=== PATIENT | male | born 1975 | race Caucasian/White ===

== ENCOUNTER 2017-05-13 03:31 | Emergency (ER) | payer BC ==
[2017-05-13 03:51] VITALS: BP 120/73; PULSE 82; RESP 16; TEMP 98; O2SAT 100
[2017-05-13] MEDS ORDERED: Oxycodone/Acetaminophen 5/325 mg Tab PO STA (04:08)
[2017-05-13] MEDS ORDERED: Tmp-Smz 800 mg-160 mg DS Tab PO STA (04:09)
--- NOTE | 2017-05-13 04:21 | ED PDOC ---
Lower Extremity Pain/Injury Time Seen by Provider: 05/13/17 03:54 Chief Complaint (Nursing): Abnormal Skin Integrity Chief Complaint (Provider): lower extremity problem History Per: Patient History/Exam Limitations: no limitations Onset/Duration Of Symptoms: Days (x2) Current Symptoms Are (Timing): Still Present Additional Complaint(s): Dominick Mills is a 42 year old male who presents to the emergency department with a complaint of redness to the posterior and lateral portion of the ankle associated with swelling ongoing for 2 days. Denied any fever or chills. Patient stated that he believed symptoms are from insect bites. PMD: none provided Past Medical History Reviewed: Historical Data, Nursing Documentation, Vital Signs Vital Signs: Last Vital Signs Temp 98.0 F 05/13/17 03:49 Pulse 82 05/13/17 03:49 Resp 16 05/13/17 03:49 BP 120/73 05/13/17 03:49 Pulse Ox 100 05/13/17 03:49 - Medical History PMH: Denies: HIV, Chronic Kidney Disease - Family History Family History: States: Unknown Family Hx - Social History Current smoker - smoking cessation education provided: No Ex-Smoker (has not smoked in the last 12 months): No Alcohol: None Drugs: Denies - Home Medications Home Medications: Ambulatory Orders Medication Instructions Recorded DiphenhydrAMINE [Benadryl] 25 mg PO Q6 #10 cap 08/18/14 Methylprednisolone [Medrol Dose 4 mg PO DAILY #21 mg 08/18/14 Pack (21 tabs)] oxyCODONE/Acetaminophen [Percocet 1 ea PO Q6 PRN #20 tab 08/18/14 5/325 mg Tab] Acetaminophen 2 tab PO Q6 PRN #24 tab 04/25/15 Ibuprofen [Motrin] 1 tab PO Q8 PRN #21 tab 04/25/15 Penicillin V Potassium [Pen-Vee K] 500 mg PO Q6 #40 tab 04/25/15 Albuterol 0.083% [Albuterol 0.083% 2.5 mg IH TID PRN #100 neb 08/05/16 Inhal Sarah (2.5 mg/3 ml) UD] Albuterol HFA [Ventolin HFA 90 2 puff IH [id number] PRN #1 inhaler 08/05/16 mcg/actuation (8 g)] Azithromycin [Zithromax] 1 tab PO DAILY #6 tab 08/05/16 Mask, Face [Nebulizer Aerosol Mask 1 dev XX PRN PRN #1 dev 08/05/16 Adult] Nebulizer [Aeroeclipse II] 1 each MC TID PRN #1 each 08/05/16 Prednisone [Deltasone] 3 tab PO DAILY #12 tablet 08/05/16 Pseudoephedrine [Sudafed Tab] 1 tab PO Q6 PRN #24 tab 08/05/16 Albuterol HFA [Ventolin HFA 90 1 puff IH QPM PRN #1 inhaler 10/03/16 mcg/actuation (8 g)] Ibuprofen [Motrin Tab] 600 mg PO Q6 #30 tab 10/03/16 predniSONE [predniSONE Tab] 60 mg PO DAILY #9 tab 10/03/16 Ibuprofen [Motrin Tab] 600 mg PO Q6 #30 tab 05/13/17 Sulfamethoxazole/Trimethoprim 1 tab PO BID 7 Days tab 05/13/17 [Bactrim DS 800 mg-160 mg] - Allergies Allergies/Adverse Reactions: Allergies Allergy/AdvReac Type Severity Reaction Status Date / Time No Known Allergies Allergy Verified 08/17/14 02:02 Review of Systems ROS Statement: Except As Marked, All Systems Reviewed And Found Negative Constitutional: Negative for: Fever, Chills Musculoskeletal: Positive for: Foot Pain (posterior and lateral portion of right ankle) Physical Exam - Reviewed Nursing Documentation Reviewed: Yes Vital Signs Reviewed: Yes - Physical Exam Appears: Positive for: Well, Non-toxic, No Acute Distress Pulses-Dorsalis Pedis (L): 2+ Pulses-Dorsalis Pedis (R): 2+ Extremity: Positive for: Normal ROM, Tenderness (bilateral ankle), Deformity ( 6cm in diameter of erythema to right posterior ankle and 2cm in diameter of erythema to left lateral ankle erythema), Swelling (bilateral ankle). Negative for: Calf Tenderness, Other (drainage or fluctuance) - ECG O2 Sat by Pulse Oximetry: 100 (RA) Pulse Ox Interpretation: Normal Medical Decision Making Medical Decision Making: Initial Impression: Cellulitis Initial Plan: * Bactrim DS PO * Percocet 5/325 PO Scribe Attestation: Documented by Lavinia Virgen, acting as a scribe for Tarun Pina MD. Provider Scribe Attestation: All medical record entries made by the Scribe were at my direction and personally dictated by me. I have reviewed the chart and agree that the record accurately reflects my personal performance of the history, physical exam, medical decision making, and the department course for this patient. I have also personally directed, reviewed, and agree with the discharge instructions and disposition. Disposition - Clinical Impression Clinical Impression: Cellulitis - Disposition Referrals: Yoanna Saucedo [Outside] Disposition: Routine/Home Disposition Time: 04:00 Condition: STABLE Prescriptions: Ibuprofen [Motrin Tab] 600 mg PO Q6 #30 tab Sulfamethoxazole/Trimethoprim [Bactrim DS 800 mg-160 mg] 1 tab PO BID 7 Days tab Instructions: Cellulitis (ED) Forms: [employer] (Kenyan)
== END 2017-05-13 04:34 | disposition home or self-care (01) ==
LOC: H.ER 03:31
DX: L03.90 Cellulitis, unspecified (principal)

== ENCOUNTER 2017-12-26 22:04 | Emergency (ER) | payer BC ==
[2017-12-26 22:19] VITALS: BP 139/89; PULSE 98; RESP 16; TEMP 98.4; O2SAT 96
[2017-12-26 22:41] LABS: URINE BACTERIA MOD (<OCC); URINE BILIRUBIN NEGATIVE (NEGATIVE); URINE BLOOD LARGE (NEGATIVE); URINE CLARITY CLOUDY (Clear); URINE COLOR YELLOW (YELLOW); URINE GLUCOSE (UA) NEG (Normal); URINE LEUKOCYTE ESTERASE LARGE Leu/uL (Negative); URINE PROTEIN 100 mg/dL (NEGATIVE); URINE UROBILINOGEN 0.2-1.0 mg/dL (0.2-1.0); WBC CLUMPS OCC /hpf
[2017-12-26 22:42] LABS: SQUAMOUS EPITHIAL 3 /hpf (0-5)
--- NOTE | 2017-12-26 23:12 | ED PDOC ---
HPI: Male Pain Time Seen by Provider: 12/26/17 22:22 Chief Complaint (Nursing): Male Genitourinary Chief Complaint (Provider): Dysuria, Hematuria History Per: Patient History/Exam Limitations: no limitations Onset/Duration Of Symptoms: Days Current Symptoms Are (Timing): Still Present Associated Symptoms: Back Pain, Urinary Symptoms Additional Complaint(s): Patient is a 42 year old male, with no past medical history, who presents for evaluation of worsening dysuria and urinary frequency x1 week, that is now associated with intermittent hematuria x2 days and lower back pain. Patient has been taking OTC Azo without relief of symptoms for the last 3 days. Patient states he only has 1 sexual partner, his girlfriend, and denies any possibility or concern for STD. Patient does report a history of UTI, last 10- 15 years ago , with similar symptoms. Patient denies: fever, chills, flank pain, new sexual partners, history of STDs, penile discharge, testicular pain, scrotal swelling, N/V/D, abdominal pain. PMD: None Past Medical History Reviewed: Historical Data, Nursing Documentation, Vital Signs Vital Signs: Last Vital Signs Temp 98.4 F 12/26/17 22:17 Pulse 98 H 12/26/17 22:17 Resp 16 12/26/17 22:17 BP 139/89 12/26/17 22:17 Pulse Ox 96 12/26/17 22:17 - Medical History PMH: No Chronic Diseases Denies: Chronic Kidney Disease - Surgical History Surgical History: Hernia Repair Other surgeries: Circumcision - Family History Family History: States: Unknown Family Hx - Living Arrangements Living Arrangements: With Family - Social History Current smoker - smoking cessation education provided: No Alcohol: None Drugs: Denies - Home Medications Home Medications: Ambulatory Orders Medication Instructions Recorded DiphenhydrAMINE [Benadryl] 25 mg PO Q6 #10 cap 08/18/14 Methylprednisolone [Medrol Dose 4 mg PO DAILY #21 mg 08/18/14 Pack (21 tabs)] oxyCODONE/Acetaminophen [Percocet 1 ea PO Q6 PRN #20 tab 08/18/14 5/325 mg Tab] Acetaminophen 2 tab PO Q6 PRN #24 tab 04/25/15 Ibuprofen [Motrin] 1 tab PO Q8 PRN #21 tab 04/25/15 Penicillin V Potassium [Pen-Vee K] 500 mg PO Q6 #40 tab 04/25/15 Albuterol 0.083% [Albuterol 0.083% 2.5 mg IH TID PRN #100 neb 08/05/16 Inhal Sarah (2.5 mg/3 ml) UD] Albuterol HFA [Ventolin HFA 90 2 puff IH [id number] PRN #1 inhaler 08/05/16 mcg/actuation (8 g)] Azithromycin [Zithromax] 1 tab PO DAILY #6 tab 08/05/16 Mask, Face [Nebulizer Aerosol Mask 1 dev XX PRN PRN #1 dev 08/05/16 Adult] Nebulizer [Aeroeclipse II] 1 each MC TID PRN #1 each 08/05/16 Prednisone [Deltasone] 3 tab PO DAILY #12 tablet 08/05/16 Pseudoephedrine [Sudafed Tab] 1 tab PO Q6 PRN #24 tab 08/05/16 Albuterol HFA [Ventolin HFA 90 1 puff IH QPM PRN #1 inhaler 10/03/16 mcg/actuation (8 g)] Ibuprofen [Motrin Tab] 600 mg PO Q6 #30 tab 10/03/16 predniSONE [predniSONE Tab] 60 mg PO DAILY #9 tab 10/03/16 Ibuprofen [Motrin Tab] 600 mg PO Q6 #30 tab 05/13/17 Sulfamethoxazole/Trimethoprim 1 tab PO BID 7 Days tab 05/13/17 [Bactrim DS 800 mg-160 mg] Ciprofloxacin HCl [Cipro] 250 mg PO BID #14 tablet 12/26/17 Meloxicam [Mobic] 15 mg PO DAILY PRN #10 tab 12/26/17 Phenazopyridine HCl [Pyridium] 200 mg PO BID PRN #4 tablet 12/26/17 - Allergies Allergies/Adverse Reactions: Allergies Allergy/AdvReac Type Severity Reaction Status Date / Time No Known Allergies Allergy Verified 12/26/17 22:17 Review of Systems ROS Statement: Except As Marked, All Systems Reviewed And Found Negative Genitourinary Male: Positive for: Dysuria, Frequency, Hematuria. Negative for: Incontinence, Penile Discharge, Scrotal Pain, Rash, Penile Pain Musculoskeletal: Positive for: Back Pain (lower) Physical Exam - Reviewed Nursing Documentation Reviewed: Yes Vital Signs Reviewed: Yes - Physical Exam Appears: Positive for: Well (obese), Non-toxic, No Acute Distress Head Exam: Positive for: ATRAUMATIC, NORMOCEPHALIC Skin: Positive for: Normal Color, Warm, Dry Eye Exam: Positive for: EOMI, PERRL ENT: Positive for: Other (Mucus membranes moist. Airway patent (-) stridor) Neck: Positive for: Painless ROM, Supple Cardiovascular/Chest: Positive for: Regular Rate, Rhythm Respiratory: Positive for: Normal Breath Sounds. Negative for: Decreased Breath Sounds, Accessory Muscle Use, Respiratory Distress Gastrointestinal/Abdominal: Positive for: Soft. Negative for: Tenderness, Mass , Distended, Guarding, Rebound Back: Negative for: L CVA Tenderness, R CVA Tenderness, Vertebral Tenderness Extremity: Positive for: Normal ROM Neurologic/Psych: Positive for: Alert, Oriented (x3), Gait (steady in ED). Negative for: Aphasia, Facial Droop - ECG O2 Sat by Pulse Oximetry: 96 (RA) Pulse Ox Interpretation: Normal Medical Decision Making Medical Decision Making: Clinical Impression: Dysuria, Hematuria, Probable UTI Plan: -U/A -U/C -Accucheck -Pyridium PO -Toradol IM -Re-evaluation 2310 U/A reviewed and consistent with UTI. -Cipro PO ordered. 2320 Accucheck: 124 2340 On re-evaluation, patient reports improvement of symptoms, and resolution of back pain. On exam, patient remains AAOx3, in no acute distress. On exam, neck is supple, lungs CTA, cardiac RRR, abdomen is soft and non-tender, neuro exam shows no focal findings. VSS, stable for discharge. Diagnostic results d/w the patient in great detail. Dx of UTI/cystitis, dysuria d/w the patient. Based on history, exam and diagnostic results plan will be for discharge and outpatient urology follow up. Advised to follow up with primary care physician/urology in 1-2 days without fail. Advised to take medication as prescribed. Return to the emergency room at any time for any new or worsening symptoms. Patient states he fully agrees with and understands discharge instructions. States that he agrees with the plan and disposition. Verbalized and repeated discharge instructions and plan. I have given the patient opportunity to ask any additional questions. Disposition - Clinical Impression Clinical Impression: Urinary tract infection, Dysuria, Hematuria, Cystitis - Patient ED Disposition Is Patient to be Admitted: No Counseled Patient/Family Regarding: Studies Performed, Diagnosis, Need For Followup, Rx Given - Disposition Referrals: Brock Rushing Jr., MD [Staff Provider] - Disposition: Routine/Home Disposition Time: 23:40 Condition: STABLE Additional Instructions: FOLLOW UP WITH UROLOGY IN 1-2 DAYS WITHOUT FAIL. RETURN TO ED WITH ANY NEW OR WORSENING SYMPTOMS. Prescriptions: Ciprofloxacin HCl [Cipro] 250 mg PO BID #14 tablet Meloxicam [Mobic] 15 mg PO DAILY PRN #10 tab PRN Reason: Pain, Moderate (4-7) Phenazopyridine HCl [Pyridium] 200 mg PO BID PRN #4 tablet PRN Reason: URINARY DISCOMFORT Instructions: Urinary Tract Infections in Adults, Blood in the Urine (Hematuria ) in Adults Forms: [employer] (Yoruba) Print Language: WOLOF - POA Present On Arrival: None Results - Lab Results Lab Results: 12/26/17 22:25 Urine Color Yellow Urine Clarity Cloudy Urine pH 6.0 Ur Specific Stanton 1.015 Urine Protein 100 Urine Glucose (UA) Neg Urine Ketones Negative Urine Blood Large Urine Nitrate Positive H Urine Bilirubin Negative Urine Urobilinogen 0.2-1.0 Ur Leukocyte Esterase Large Urine RBC (Auto) 88 H Urine WBC Clumps (Auto) Occ H Urine Microscopic WBC 296 H Ur Squamous Epith Cells 3 Urine Bacteria Mod H
== END 2017-12-26 23:50 | disposition home or self-care (01) ==
LOC: H.ER 22:04
DX: N39.0 Urinary tract infection, site not specified (principal); R30.0 Dysuria; R31.9 Hematuria, unspecified; N30.90 Cystitis, unspecified without hematuria
CPT/HCPCS: 81003; 82948; 87086; 96372; 99283; J1885

== ENCOUNTER 2018-01-02 22:01 | Emergency (ER) | payer BC ==
[2018-01-02 23:27] VITALS: RESP 18; TEMP 97.1; O2SAT 96
--- NOTE | 2018-01-03 02:26 | ED PDOC ---
Lower Extremity Pain/Injury Time Seen by Provider: 01/03/18 02:13 Chief Complaint (Nursing): Lower Extremity Problem/Injury Chief Complaint (Provider): left foot pain History Per: Patient History/Exam Limitations: no limitations Onset/Duration Of Symptoms: Days (1) Current Symptoms Are (Timing): Still Present Additional History Per: Patient Additional Complaint(s): 42 yo morbidly obese male, no past medical history, presents to ED for evaluation of an injury to the plantar surface of his left foot. Patient states he has chronic dry, cracked feet with flaky soles and yesterday he noted a small cut to the foot near the heel. He reports mild pain and states it worsens when attempting to bear weight on that foot. He denies any fever, chills, redness or swelling to his foot. No other complaints. PMD: None provided Past Medical History Reviewed: Historical Data, Nursing Documentation, Vital Signs Vital Signs: Last Vital Signs Temp 97.1 F L 01/02/18 23:21 Pulse 80 01/02/18 23:21 Resp 18 01/02/18 23:21 BP 135/90 01/02/18 23:21 Pulse Ox 96 01/02/18 23:21 - Medical History PMH: Denies: HIV, Chronic Kidney Disease - Surgical History Surgical History: Hernia Repair - Family History Family History: States: Unknown Family Hx - Home Medications Home Medications: Ambulatory Orders Medication Instructions Recorded DiphenhydrAMINE [Benadryl] 25 mg PO Q6 #10 cap 08/18/14 Methylprednisolone [Medrol Dose 4 mg PO DAILY #21 mg 08/18/14 Pack (21 tabs)] oxyCODONE/Acetaminophen [Percocet 1 ea PO Q6 PRN #20 tab 08/18/14 5/325 mg Tab] Acetaminophen 2 tab PO Q6 PRN #24 tab 04/25/15 Ibuprofen [Motrin] 1 tab PO Q8 PRN #21 tab 04/25/15 Penicillin V Potassium [Pen-Vee K] 500 mg PO Q6 #40 tab 04/25/15 Albuterol 0.083% [Albuterol 0.083% 2.5 mg IH TID PRN #100 neb 08/05/16 Inhal Sarah (2.5 mg/3 ml) UD] Albuterol HFA [Ventolin HFA 90 2 puff IH [id number] PRN #1 inhaler 08/05/16 mcg/actuation (8 g)] Azithromycin [Zithromax] 1 tab PO DAILY #6 tab 08/05/16 Mask, Face [Nebulizer Aerosol Mask 1 dev XX PRN PRN #1 dev 08/05/16 Adult] Nebulizer [Aeroeclipse II] 1 each MC TID PRN #1 each 08/05/16 Prednisone [Deltasone] 3 tab PO DAILY #12 tablet 08/05/16 Pseudoephedrine [Sudafed Tab] 1 tab PO Q6 PRN #24 tab 08/05/16 Albuterol HFA [Ventolin HFA 90 1 puff IH QPM PRN #1 inhaler 10/03/16 mcg/actuation (8 g)] Ibuprofen [Motrin Tab] 600 mg PO Q6 #30 tab 10/03/16 predniSONE [predniSONE Tab] 60 mg PO DAILY #9 tab 10/03/16 Ibuprofen [Motrin Tab] 600 mg PO Q6 #30 tab 05/13/17 Sulfamethoxazole/Trimethoprim 1 tab PO BID 7 Days tab 05/13/17 [Bactrim DS 800 mg-160 mg] Ciprofloxacin HCl [Cipro] 250 mg PO BID #14 tablet 12/26/17 Meloxicam [Mobic] 15 mg PO DAILY PRN #10 tab 12/26/17 Phenazopyridine HCl [Pyridium] 200 mg PO BID PRN #4 tablet 12/26/17 Bacitracin OINT 1 applic TP BID 1 Days #1 tube 01/03/18 - Allergies Allergies/Adverse Reactions: Allergies Allergy/AdvReac Type Severity Reaction Status Date / Time No Known Allergies Allergy Verified 12/26/17 22:17 Review of Systems ROS Statement: Except As Marked, All Systems Reviewed And Found Negative Constitutional: Negative for: Fever, Chills Musculoskeletal: Positive for: Foot Pain (left) Physical Exam - Reviewed Nursing Documentation Reviewed: Yes Vital Signs Reviewed: Yes - Physical Exam Appears: Positive for: Non-toxic, No Acute Distress Head Exam: Positive for: ATRAUMATIC, NORMAL INSPECTION, NORMOCEPHALIC Pulses-Dorsalis Pedis (L): 2+ Pulses-Dorsalis Pedis (R): 2+ Extremity: Positive for: Normal ROM (FROM left foot), Capillary Refill (, 2 seconds), Other (1cm crack to sole of left foot before the heel, located midline. no surrounding tenderness, erythema, warmth, fluctuance or induration.) . Negative for: Tenderness, Pedal Edema, Calf Tenderness, Deformity, Swelling Neurologic/Psych: Positive for: Alert, Oriented. Negative for: Motor/Sensory Deficits - ECG O2 Sat by Pulse Oximetry: 96 (RA) Pulse Ox Interpretation: Normal Medical Decision Making Medical Decision Making: Impression: Left foot injury Plan: -- XR Left foot r/o foreign body Progress: 0233 XR reviewed by provider and indicates no foreign body. Patient stable for discharge home; given prescription for Bactrim and instructed to follow up at podiatry clinic. Scribe Attestation: Documented by Kandice Barton, acting as a scribe for Neville Blanca MD Provider Attestation: All medical record entries made by the Scribe were at my direction and personally dictated by me. I have reviewed the chart and agree that the record accurately reflects my personal performance of the history, physical exam, medical decision making, and the department course for this patient. I have also personally directed, reviewed, and agree with the discharge instructions and disposition. Disposition - Clinical Impression Clinical Impression: Fissure in skin of foot - Disposition Referrals: Podiatry Clinic [Outside] Disposition: Routine/Home Disposition Time: 02:33 Condition: STABLE Prescriptions: Bacitracin OINT 1 applic TP BID 1 Days #1 tube Instructions: Wound Care Forms: [employer] (Yakut)
[2018-01-03 03:30] VITALS: BP 130/88; PULSE 82
--- NOTE | 2018-01-03 09:23 | RAD ---
PROCEDURE: Left Foot Radiographs. HISTORY: foot pain COMPARISON: None. FINDINGS: BONES: No acute fracture or destructive bony lesion identified. JOINTS: [id number] hallux valgus deformity reiterated with significant joint space narrowing and cortical sclerosis at the 1st metatarsophalangeal joint compatible with relatively advanced osteoarthritis, typically for a 42-year-old patient. SOFT TISSUES: Normal. OTHER FINDINGS: None. IMPRESSION: No acute fracture or dislocation. Moderate [id number] hallux valgus deformity. Advanced degenerative changes 1st metatarsal phalangeal joint.
== END 2018-01-03 03:14 | disposition home or self-care (01) ==
LOC: H.ER 22:01
DX: R23.4 Changes in skin texture (principal); E66.01 Morbid (severe) obesity due to excess calories

== ENCOUNTER 2018-03-21 21:40 | Emergency (ER) | payer BC ==
[2018-03-21 22:23] VITALS: BP 115/77; PULSE 100; RESP 18; TEMP 98.3; O2SAT 97
[2018-03-21] MEDS ORDERED: PROPARACAINE/FLUORESCEIN SOD 100 DROP/5 ML BOTTLE OD STA (23:53)
[2018-03-21] MEDS ORDERED: PROPARACAINE/FLUORESCEIN SOD 100 DROP/5 ML BOTTLE ONE (23:59)
[2018-03-22] MEDS ORDERED: PROPARACAINE/FLUORESCEIN SOD 100 DROP/5 ML BOTTLE ONE (00:24)
--- NOTE | 2018-03-22 00:31 | ED PDOC ---
HPI: Eye Injury/Pain Time Seen by Provider: 03/21/18 23:48 Chief Complaint (Nursing): Eye Problem Chief Complaint (Provider): right eye irritation History Per: Patient History/Exam Limitations: no limitations Onset/Duration Of Symptoms: Days (2) Current Symptoms Are (Timing): Still Present Additional Complaint(s): 43 y/o male presents with right eye irritation x 2 days. Patient states he noticed some redness to the eye last night, which has since worsened today. Associated photophobia. Denies headache, vision changes, drainage from eye. Denies contact lens/glasses use Past Medical History Reviewed: Historical Data, Nursing Documentation, Vital Signs Vital Signs: Last Vital Signs Temp 98.3 F 03/21/18 22:14 Pulse 100 H 03/21/18 22:14 Resp 18 03/21/18 22:14 BP 115/77 03/21/18 22:14 Pulse Ox 97 03/21/18 22:14 - Medical History PMH: No Chronic Diseases Denies: HIV, Chronic Kidney Disease - Surgical History Surgical History: Hernia Repair - Family History Family History: States: Unknown Family Hx - Home Medications Home Medications: Ambulatory Orders Medication Instructions Recorded DiphenhydrAMINE [Benadryl] 25 mg PO Q6 #10 cap 08/18/14 Methylprednisolone [Medrol Dose 4 mg PO DAILY #21 mg 08/18/14 Pack (21 tabs)] oxyCODONE/Acetaminophen [Percocet 1 ea PO Q6 PRN #20 tab 08/18/14 5/325 mg Tab] Acetaminophen 2 tab PO Q6 PRN #24 tab 04/25/15 Ibuprofen [Motrin] 1 tab PO Q8 PRN #21 tab 04/25/15 Penicillin V Potassium [Pen-Vee K] 500 mg PO Q6 #40 tab 04/25/15 Albuterol 0.083% [Albuterol 0.083% 2.5 mg IH TID PRN #100 neb 08/05/16 Inhal Sarah (2.5 mg/3 ml) UD] Albuterol HFA [Ventolin HFA 90 2 puff IH [id number] PRN #1 inhaler 08/05/16 mcg/actuation (8 g)] Azithromycin [Zithromax] 1 tab PO DAILY #6 tab 08/05/16 Mask, Face [Nebulizer Aerosol Mask 1 dev XX PRN PRN #1 dev 08/05/16 Adult] Nebulizer [Aeroeclipse II] 1 each MC TID PRN #1 each 08/05/16 Prednisone [Deltasone] 3 tab PO DAILY #12 tablet 08/05/16 Pseudoephedrine [Sudafed Tab] 1 tab PO Q6 PRN #24 tab 08/05/16 Albuterol HFA [Ventolin HFA 90 1 puff IH QPM PRN #1 inhaler 10/03/16 mcg/actuation (8 g)] Ibuprofen [Motrin Tab] 600 mg PO Q6 #30 tab 10/03/16 predniSONE [predniSONE Tab] 60 mg PO DAILY #9 tab 10/03/16 Ibuprofen [Motrin Tab] 600 mg PO Q6 #30 tab 05/13/17 Sulfamethoxazole/Trimethoprim 1 tab PO BID 7 Days tab 05/13/17 [Bactrim DS 800 mg-160 mg] Ciprofloxacin HCl [Cipro] 250 mg PO BID #14 tablet 12/26/17 Meloxicam [Mobic] 15 mg PO DAILY PRN #10 tab 12/26/17 Phenazopyridine HCl [Pyridium] 200 mg PO BID PRN #4 tablet 12/26/17 Bacitracin OINT 1 applic TP BID 1 Days #1 tube 01/03/18 Erythromycin 0.5% [Erythromycin] 1 applic OD Q6 #1 tube 03/22/18 - Allergies Allergies/Adverse Reactions: Allergies Allergy/AdvReac Type Severity Reaction Status Date / Time No Known Allergies Allergy Verified 12/26/17 22:17 Review of Systems ROS Statement: Except As Marked, All Systems Reviewed And Found Negative Eyes: Positive for: Redness (right) Physical Exam - Reviewed Nursing Documentation Reviewed: Yes Vital Signs Reviewed: Yes - Physical Exam Appears: Positive for: Well, Non-toxic, No Acute Distress Head Exam: Positive for: ATRAUMATIC, NORMAL INSPECTION, NORMOCEPHALIC Eye Exam: Positive for: EOMI, PERRL, Conjunctival injection (right) Neurologic/Psych: Positive for: Alert, Oriented (x3) - ECG O2 Sat by Pulse Oximetry: 97 - Progress ED Course And Treament: 2 drops flucaine applied to right eye; fluro uptake noted 7:00 position Patient educated on findings, discharged with rx erythromycin Advised ophtho follow up within 2 days Return precautions given Disposition - Clinical Impression Clinical Impression: Corneal abrasion, right - Patient ED Disposition Is Patient to be Admitted: No Counseled Patient/Family Regarding: Studies Performed, Diagnosis, Need For Followup, Rx Given - Disposition Referrals: Javy Awad MD [Staff Provider] - Disposition: Routine/Home Disposition Time: 00:41 Condition: IMPROVED Prescriptions: Erythromycin 0.5% [Erythromycin] 1 applic OD Q6 #1 tube Instructions: Corneal Abrasion Forms: [employer] (Irish)
== END 2018-03-22 01:00 | disposition home or self-care (01) ==
LOC: H.ER 21:40
DX: S05.01XA Injury of conjunctiva and corneal abrasion without foreign body, right eye, initial encounter (principal); Y92.89 Other specified places as the place of occurrence of the external cause

== ENCOUNTER 2018-03-22 13:55 | Emergency (ER) | payer BC ==
--- NOTE | 2018-03-22 15:05 | ED PDOC ---
HPI: Eye Injury/Pain Time Seen by Provider: 03/22/18 14:22 Chief Complaint (Nursing): Eye Problem Chief Complaint (Provider): right eye pain History Per: Patient History/Exam Limitations: no limitations Current Symptoms Are (Timing): Still Present Additional Complaint(s): 43 year old male with no significant past medical history presents to the ED with a corneal abrasion onset 2 days ago. Patient reports he was seen in the ED last night and was prescribed eye ointment but he having trouble getting the ointment into his eye. Patient took Tylenol this afternoon with minimal relief. He denies contact lens use or any other medical complaints. PMD: none Past Medical History Reviewed: Historical Data, Nursing Documentation, Vital Signs Vital Signs: Last Vital Signs Temp 98.5 F 03/22/18 14:02 Pulse 97 H 03/22/18 14:02 Resp 16 03/22/18 14:02 BP 139/87 03/22/18 14:02 Pulse Ox 97 03/22/18 14:02 - Medical History PMH: No Chronic Diseases - Surgical History Surgical History: Hernia Repair - Family History Family History: States: No Known Family Hx - Living Arrangements Living Arrangements: With Family - Social History Current smoker - smoking cessation education provided: No Alcohol: None Drugs: Denies - Home Medications Home Medications: Ambulatory Orders Medication Instructions Recorded DiphenhydrAMINE [Benadryl] 25 mg PO Q6 #10 cap 08/18/14 Methylprednisolone [Medrol Dose 4 mg PO DAILY #21 mg 08/18/14 Pack (21 tabs)] oxyCODONE/Acetaminophen [Percocet 1 ea PO Q6 PRN #20 tab 08/18/14 5/325 mg Tab] Acetaminophen 2 tab PO Q6 PRN #24 tab 04/25/15 Ibuprofen [Motrin] 1 tab PO Q8 PRN #21 tab 04/25/15 Penicillin V Potassium [Pen-Vee K] 500 mg PO Q6 #40 tab 04/25/15 Albuterol 0.083% [Albuterol 0.083% 2.5 mg IH TID PRN #100 neb 08/05/16 Inhal Sarah (2.5 mg/3 ml) UD] Albuterol HFA [Ventolin HFA 90 2 puff IH [id number] PRN #1 inhaler 08/05/16 mcg/actuation (8 g)] Azithromycin [Zithromax] 1 tab PO DAILY #6 tab 08/05/16 Mask, Face [Nebulizer Aerosol Mask 1 dev XX PRN PRN #1 dev 08/05/16 Adult] Nebulizer [Aeroeclipse II] 1 each MC TID PRN #1 each 08/05/16 Prednisone [Deltasone] 3 tab PO DAILY #12 tablet 08/05/16 Pseudoephedrine [Sudafed Tab] 1 tab PO Q6 PRN #24 tab 08/05/16 Albuterol HFA [Ventolin HFA 90 1 puff IH QPM PRN #1 inhaler 10/03/16 mcg/actuation (8 g)] Ibuprofen [Motrin Tab] 600 mg PO Q6 #30 tab 10/03/16 predniSONE [predniSONE Tab] 60 mg PO DAILY #9 tab 10/03/16 Ibuprofen [Motrin Tab] 600 mg PO Q6 #30 tab 05/13/17 Sulfamethoxazole/Trimethoprim 1 tab PO BID 7 Days tab 05/13/17 [Bactrim DS 800 mg-160 mg] Ciprofloxacin HCl [Cipro] 250 mg PO BID #14 tablet 12/26/17 Meloxicam [Mobic] 15 mg PO DAILY PRN #10 tab 12/26/17 Phenazopyridine HCl [Pyridium] 200 mg PO BID PRN #4 tablet 12/26/17 Bacitracin OINT 1 applic TP BID 1 Days #1 tube 01/03/18 Erythromycin 0.5% [Erythromycin] 1 applic OD Q6 #1 tube 03/22/18 Tobramycin [Tobrex] 5 ml TOP QID #1 bottle 03/22/18 - Allergies Allergies/Adverse Reactions: Allergies Allergy/AdvReac Type Severity Reaction Status Date / Time No Known Allergies Allergy Verified 03/22/18 14:02 Review of Systems ROS Statement: Except As Marked, All Systems Reviewed And Found Negative Eyes: Positive for: Other (right eye redness and watery discharge) Neurological: Negative for: Headache, Dizziness Physical Exam - Reviewed Nursing Documentation Reviewed: Yes Vital Signs Reviewed: Yes - Physical Exam Appears: Positive for: Well, Non-toxic, No Acute Distress Head Exam: Positive for: ATRAUMATIC, NORMAL INSPECTION, NORMOCEPHALIC Skin: Positive for: Normal Color. Negative for: Rash Eye Exam: Positive for: Conjunctival injection (to right eye with tearing). Negative for: Nystagmus, Periorbital swelling, Periorbital tenderness, Scleral icterus ENT: Positive for: Normal ENT Inspection Neurologic/Psych: Positive for: Alert, Oriented - ECG O2 Sat by Pulse Oximetry: 97 (RA) Pulse Ox Interpretation: Normal Medical Decision Making Medical Decision Making: Time: 15:05 Initial Impression: 43 year old male with corneal abrasion to right eye. Initial Plan: --Patient will be prescribed tobramycin eye drops, but is encouraged to continue using the ointment. He was given a referral to followup with an eye doctor. Advised Motrin started Tylenol for pain relief. Scribe Attestation: Documented by Leatha Beth, acting as a scribe for Stacey White PA-C. Provider Scribe Attestation: All medical record entries made by the Scribe were at my direction and personally dictated by me. I have reviewed the chart and agree that the record accurately reflects my personal performance of the history, physical exam, medical decision making, and the department course for this patient. I have also personally directed, reviewed, and agree with the discharge instructions and disposition. Disposition - Clinical Impression Clinical Impression: Corneal abrasion, right - Patient ED Disposition Is Patient to be Admitted: No Counseled Patient/Family Regarding: Diagnosis, Need For Followup, Rx Given - Disposition Referrals: Javy Awad MD [Staff Provider] - Disposition: Routine/Home Disposition Time: 15:38 Condition: STABLE Additional Instructions: Apply drops as directed. Continue with ointment at least once per day. Advil or Motrin for pain instead of tylenol. Follow-up with digital publishing specialist in 2-3 days. Prescriptions: Tobramycin [Tobrex] 5 ml TOP QID #1 bottle Instructions: Corneal Abrasion (DC) Forms: [employer] (Bulgarian)
[2018-03-22 16:27] VITALS: BP 131/78; PULSE 76; RESP 18; TEMP 98.1; O2SAT 99
== END 2018-03-22 16:10 | disposition home or self-care (01) ==
LOC: H.ER 13:55
DX: S05.01XA Injury of conjunctiva and corneal abrasion without foreign body, right eye, initial encounter (principal); Y92.89 Other specified places as the place of occurrence of the external cause

== ENCOUNTER 2018-11-07 04:39 | Emergency (ER) | payer BC ==
[2018-11-07 04:56] VITALS: O2SAT 98
[2018-11-07] MEDS ORDERED: Lidocaine 2% w Epi 1:100,000 Inj IJ ONE (05:39)
[2018-11-07] MEDS ORDERED: Tmp-Smz 800 mg-160 mg DS Tab PO STA (05:40)
[2018-11-07] MEDS ORDERED: Oxycodone/Acetaminophen 5/325 mg Tab PO STA (05:41)
--- NOTE | 2018-11-07 05:56 | ED PDOC ---
HPI: Skin/Bite Injury Time Seen by Provider: 11/07/18 05:01 Chief Complaint (Nursing): Abnormal Skin Integrity Chief Complaint (Provider): Abnormal Skin Integrity History Per: Patient History/Exam Limitations: no limitations Onset/Duration Of Symptoms: Days (x 3) Current Symptoms Are (Timing): Still Present Location Of Injury: Left: Abdomen Additional Complaint(s): 43 year old male presents to the ED for evaluation of an abscess on his lower left abdomen associated with pain and swelling to the area. Area is noted to be red. However, he denies fever and other complaints. PMD: none provided Past Medical History Reviewed: Historical Data, Nursing Documentation, Vital Signs Vital Signs: Last Vital Signs Temp 98.0 F 11/07/18 04:53 Pulse 76 11/07/18 04:53 Resp 20 11/07/18 04:53 BP 139/89 11/07/18 04:53 Pulse Ox 98 11/07/18 04:53 - Medical History PMH: No Chronic Diseases Denies: HIV, Chronic Kidney Disease - Surgical History Surgical History: Hernia Repair - Family History Family History: States: Unknown Family Hx - Home Medications Home Medications: Ambulatory Orders Medication Instructions Recorded Sulfamethoxazole/Trimethoprim 1 tab PO BID #20 tab 11/07/18 [Bactrim DS 800 mg-160 mg] Cephalexin [Keflex] 500 mg PO Q6 10 Days capsule 11/08/18 Multivit-Min/Folic/Vit K/Lycop 1 tab PO DAILY 11/08/18 [Men's Multivitamin Tablet] - Allergies Allergies/Adverse Reactions: Allergies Allergy/AdvReac Type Severity Reaction Status Date / Time No Known Allergies Allergy Verified 03/22/18 14:02 Review of Systems ROS Statement: Except As Marked, All Systems Reviewed And Found Negative Constitutional: Negative for: Fever Gastrointestinal: Positive for: Abdominal Pain (pain, redness and swelling to left lower abdomen due to abscess) Genitourinary Male: Negative for: Dysuria, Frequency, Incontinence Physical Exam - Reviewed Nursing Documentation Reviewed: Yes Vital Signs Reviewed: Yes - Physical Exam Appears: Positive for: No Acute Distress (morbidly obese) Head Exam: Positive for: ATRAUMATIC, NORMAL INSPECTION, NORMOCEPHALIC Skin: Positive for: Normal Color, Warm, Dry Eye Exam: Positive for: EOMI, Normal appearance, PERRL Cardiovascular/Chest: Positive for: Regular Rate, Rhythm. Negative for: Murmur Respiratory: Positive for: Normal Breath Sounds. Negative for: Respiratory Distress Gastrointestinal/Abdominal: Positive for: Other (12in x 6 in area of erythema across abdomen; erythema in fold of pannis extending hip to hip without vesicles or drainage). Negative for: Tenderness Neurological/Psych: Positive for: Awake, Alert, Normal Tone, Oriented (x 3). Negative for: Motor/Sensory Deficits - ECG O2 Sat by Pulse Oximetry: 98 (RA) Pulse Ox Interpretation: Normal Medical Decision Making Medical Decision Makin:26 MDM: I & D area of erythema for appropriate cultures PO Bactrim started Follow up in two days for re-evaluation Scribe Attestation: Documented by Amanda Fam, acting as a scribe Kobe Mi MD Provider Scribe Attestation: All medical record entries made by the Scribe were at my direction and personally dictated by me. I have reviewed the chart and agree that the record accurately reflects my personal performance of the history, physical exam, medical decision making, and the department course for this patient. I have also personally directed, reviewed, and agree with the discharge instructions and disposition. Disposition - Clinical Impression Clinical Impression: Cellulitis - Patient ED Disposition Is Patient to be Admitted: No - Disposition Disposition: Routine/Home Disposition Time: 06:55 Condition: IMPROVED Additional Instructions: Follow up in emergency department in 48 hours for a wound check. Return immed iately if redness, swelling, bleeding, or pus worsens. Take antibiotic twice per day. Take 800mg of Motrin every 6 hours if needed for pain. Prescriptions: Sulfamethoxazole/Trimethoprim [Bactrim DS 800 mg-160 mg] 1 tab PO BID #20 tab Instructions: Cellulitis (Skin Infection), Adult (DC) Forms: [employer] (Mauritian) Print Language: [place] Procedures - Time-Out Type of Procedure: Incision and Drainage Site of Procedure: Left Lower Abdomen Correct Patient (with visual ID + MR# on ID Band): Yes Correct Procedure: Yes Correct Site Marked: Yes Physician Name: Dr. Niharika Mi - Incision and Drainage Site: Left lateral abdominal wall Blade Size: 11 I & D Procedure: sterile dressing applied Progress: 1 1/2 cm incision made to lateral left abdominal wall. Approximately 4 ccs of purulent pus drained. Minimal bleeding stopped with pressure. Cultures sent. Approximately 6 ccs of lidocaine 2% with epinephrine used.
[2018-11-07] MEDS ORDERED: Oxycodone/Acetaminophen 5/325 mg Tab ONE (05:58)
[2018-11-07] MEDS ORDERED: Tmp-Smz 800 mg-160 mg DS Tab ONE (05:58)
[2018-11-07 07:06] VITALS: BP 133/75; PULSE 84; RESP 17; TEMP 98.2
== END 2018-11-07 07:03 | disposition home or self-care (01) ==
LOC: H.ER 04:39
DX: K65.1 Peritoneal abscess (principal)

== ENCOUNTER 2018-11-08 09:14 | Observation (INO) | payer BC ==
[2018-11-08 09:25] VITALS: BMI 53.8
[2018-11-08 09:27] VITALS: RESP 18; O2SAT 99
--- NOTE | 2018-11-08 10:40 | ED PDOC ---
HPI: Skin/Bite Injury Time Seen by Provider: 11/08/18 09:44 Chief Complaint (Nursing): Abnormal Skin Integrity Chief Complaint (Provider): wound check History Per: Patient History/Exam Limitations: no limitations Onset/Duration Of Symptoms: Days Current Symptoms Are (Timing): Still Present Additional Complaint(s): Dominick Mills is a 43 year old male, with no significant past medical history, who presents to the emergency department for follow up of cellulitis/abscess I&D wound check. Patient was seen by me yesterday yeast tender due to worsening cellulitis of the abdomen. At the time, the area was I&Ded with wound culture and borders of cellulitis marked. Patient was prescribed antibiotics and returns today with worsening of cellulitis. I&D site looks improved and patient denies any fever, chills or other medical complaints. PMD: None provided. Past Medical History Reviewed: Historical Data, Nursing Documentation, Vital Signs Vital Signs: Last Vital Signs Temp 98.3 F 11/08/18 09:25 Pulse 86 11/08/18 09:25 Resp 18 11/08/18 09:25 BP 151/83 H 11/08/18 09:25 Pulse Ox 99 11/08/18 09:25 - Medical History PMH: No Chronic Diseases Denies: HIV, Chronic Kidney Disease - Surgical History Surgical History: Hernia Repair - Family History Family History: States: Unknown Family Hx - Social History Current smoker - smoking cessation education provided: No Alcohol: None Drugs: Denies - Immunization History Hx Tetanus Toxoid Vaccination: No Hx Influenza Vaccination: No Hx Pneumococcal Vaccination: No - Home Medications Home Medications: Ambulatory Orders Medication Instructions Recorded Sulfamethoxazole/Trimethoprim 1 tab PO BID #20 tab 11/07/18 [Bactrim DS 800 mg-160 mg] Cephalexin [Keflex] 500 mg PO Q6 10 Days capsule 11/08/18 Multivit-Min/Folic/Vit K/Lycop 1 tab PO DAILY 11/08/18 [Men's Multivitamin Tablet] - Allergies Allergies/Adverse Reactions: Allergies Allergy/AdvReac Type Severity Reaction Status Date / Time No Known Allergies Allergy Verified 03/22/18 14:02 Review of Systems ROS Statement: Except As Marked, All Systems Reviewed And Found Negative Constitutional: Negative for: Fever, Chills Skin: Positive for: Other (I&D site on abdomen) Physical Exam - Reviewed Nursing Documentation Reviewed: Yes Vital Signs Reviewed: Yes - Physical Exam Appears: Positive for: No Acute Distress (Morbidly obese) Head Exam: Positive for: ATRAUMATIC, NORMAL INSPECTION, NORMOCEPHALIC Skin: Positive for: Normal Color, Warm, Dry Eye Exam: Positive for: Normal appearance, EOMI, PERRL Neck: Positive for: Normal, Painless ROM Cardiovascular/Chest: Positive for: Regular Rate, Rhythm. Negative for: Murmur Respiratory: Positive for: Normal Breath Sounds. Negative for: Respiratory Distress Gastrointestinal/Abdominal: Positive for: Normal Exam, Soft, Other (13in x 7in area of erythema across abdomen; erythema in fold of pannis extending hip to hip without vesicles or drainage). Negative for: Tenderness Back: Positive for: Normal Inspection Extremity: Positive for: Normal ROM (all extremities). Negative for: Deformity Neurological/Psych: Positive for: Awake, Alert, Normal Tone, Oriented (x3). Negative for: Motor/Sensory Deficits - Laboratory Results Result Diagrams: 11/08/18 11:15 11/08/18 11:15 - ECG O2 Sat by Pulse Oximetry: 99 (RA) Pulse Ox Interpretation: Normal Medical Decision Making Medical Decision Making: Time: 09:44 Initial Impression: Patient returns today for worsening cellulitis, not responding to PO antibiotics. Lab work up, antibiotics and most likely admission for obs. Will consult general surgery. Initial Plan: --Type and screen --BMP --CBC w/ differential --PTT --PT --Unasyn 3gm NaCl 0.9% 100 ml IVPB --Blood culture --Reevaluation 11:50 -WBC:13. Patient to be admitted to medical services under Dr. Dudley for observation and IV antibiotics. 13:25 -Patient now refused to stay in the hospital. States he was unable to find rn maternal child. Patient will be discharged home with Rx for Keflex and continue taking Bactrim. Patient advised to return in 48 hrs for wound check or sooner if symptoms worsen. Scribe Attestation: Documented by Constantin Kahn, acting as a scribe Kobe Mi MD Provider Scribe Attestation: All medical record entries made by the Scribe were at my direction and personally dictated by me. I have reviewed the chart and agree that the record accurately reflects my personal performance of the history, physical exam, medical decision making, and the department course for this patient. I have also personally directed, reviewed, and agree with the discharge instructions and disposition. Disposition - Clinical Impression Clinical Impression: Cellulitis - Disposition Disposition: Against Medical Advice Disposition Time: 13:25 Condition: STABLE
[2018-11-08 11:43] LABS: BASO # 0.1 K/uL (0.0-0.2); BASO % 0.6 % (0.0-2.0); EOS # 0.2 K/uL (0.0-0.7); EOS % 1.3 % (0.0-4.0); HEMOGLOBIN 14.4 g/dL (12.0-18.0); LYMPH # 4.2 K/uL (1.0-4.3); LYMPH % 32.3 % (20.0-40.0); MEAN CELL VOLUME 88.6 fl (80.0-94.0); MEAN CORPUSCULAR HEMOGLOBIN 28.4 pg (27.0-31.0); MEAN CORPUSCULAR HGB CONC 32.1 g/dL (33.0-37.0); MEAN PLATELET VOLUME 8.8 fl (7.2-11.7); MONO # 0.9 K/uL (0.0-0.8); MONO % 7.3 % (0.0-10.0); NEUT # 7.6 K/uL (1.8-7.0); NEUT % 58.5 % (50.0-75.0); NRBC % 0.1 % (0.0-0.0); PROTHROMBIN TIME 11.7 Seconds (9.8-13.1); RBC 5.06 Mil/uL (4.40-5.90)
[2018-11-08 11:45] LABS: PARTIAL THROMBOPLASTIN TIME 31.4 Seconds (25.6-37.1)
[2018-11-08 11:47] LABS: BLOOD UREA NITROGEN 14 mg/dl (9-20); CALCIUM 9.4 mg/dL (8.4-10.2); GFR NON-AFRICAN AMERICAN > 60
[2018-11-08 13:56] VITALS: BP 139/88; PULSE 80; TEMP 98.1
== END 2018-11-08 13:35 | disposition left against medical advice (07) ==
LOC: H.ER 09:14 → H.ERHOLD 11:53
PROVIDERS: ADMIT Internal Medicine; ATTEND Internal Medicine
DX: L03.311 Cellulitis of abdominal wall (principal)
CPT/HCPCS: 80048; 85025; 85610; 85730; 86850; 86900; 87040; 96365; 99283; G0378; J0295